=== PATIENT | female | born 1970 | race Caucasian/White ===

== ENCOUNTER 2016-06-20 00:19 | Emergency (ER) | payer OTHER ==
[2016-06-20 00:20] VITALS: BP 140/66; PULSE 76; RESP 16; TEMP 97.8; O2SAT 96
--- NOTE | 2016-06-20 00:37 | PD ---
Physical Exam Date Seen by Provider: Jun 20, 2016 Time Seen by Provider: 00:34 Narrative PT SEEN IN TRIAGE. COUGH,SOB ON ZITHRO,PRED,TESSALON AND ALBUTEROL. SEEN URGENT CARE NOW WORSE SYMPTOM FOR 1 WEEK VITALS STABLE PT WAITING ON BED Data Data Last Documented VS Vital Signs Date Time Temp Pulse Resp B/P Pulse Ox O2 Delivery O2 Flow Rate FiO2 06/20/16 00:20 97.8 76 16 140/66 96 Room Air Orders Complete Blood Count With Diff (06/20/16 00:32) Basic Metabolic Panel (Bmp) (06/20/16 00:32) Chest, Pa & Lat (06/20/16 00:32) Iv Access Insert/Monitor (06/20/16 00:32) Ed Urine Pregnancytest Poc (06/20/16 00:32) Influenzae A/B Antigen (06/20/16 00:32) MDM Medical Record Reviewed: Yes Supervised Visit with ALYX: Yes Vicente Felton Jun 20, 2016 00:37
--- NOTE | 2016-06-20 01:10 | RADRPT ---
EXAM DATE/TIME: 06/20/2016 01:06 [facility] COMPARISON: No previous studies available for comparison. INDICATIONS : Cough. MEDICAL HISTORY : None. SURGICAL HISTORY : None. ENCOUNTER: Initial ACUITY: 1 week PAIN SCORE: 0/10 LOCATION: Bilateral chest FINDINGS: PA and lateral views of the chest demonstrate a normal-sized cardiac silhouette. There is no effusion , consolidation, or pneumothorax. The bones and soft tissues demonstrate no acute abnormality. CONCLUSION: No acute cardiopulmonary abnormality is identified. Germain Beaulieu MD on June 20, 2016 at 1:08 Board Certified Radiologist. This report was verified electronically.
[2016-06-20 01:47] LABS: AUTOMATED NEUTROPHIL # 6.8 TH/MM3 (1.8-7.7); BASOPHIL % 0.3 % (0.0-2.0); EOSINOPHIL # 0.2 TH/MM3 (0-0.4); EOSINOPHIL % 1.4 % (0.0-4.0); HEMATOCRIT 33.9 % (35.0-46.0); HEMO FLAGS DIFF FINAL; LYMPH % 34.5 % (9.0-44.0); LYMPHOCYTE # 4.3 TH/MM3 (1.0-4.8); MEAN CELL VOLUME 89.2 FL (80.0-100.0); MEAN CORPUSCULAR HEMOGLOBIN 31.2 PG (27.0-34.0); MONO % 8.8 % (0.0-8.0); PLATELET COUNT 321 TH/MM3 (150-450); RED CELL DISTRIBUTION WIDTH 12.5 % (11.6-17.2); WHITE BLOOD COUNT 12.3 TH/MM3 (4.0-11.0)
[2016-06-20 01:55] LABS: BICARBONATE 28.6 MEQ/L (21.0-32.0); POTASSIUM 3.3 MEQ/L (3.5-5.1)
[2016-06-20] MEDS ORDERED: POTASSIUM CHLORIDE 20 MEQ CONTROLLED RELEASE TAB PO ONE (06:15)
[2016-06-20] MEDS ORDERED: guaiFENesin/CODEINE SYRUP 200 MG/20 MG/10 ML CUP PO ONE (06:15)
--- NOTE | 2016-06-20 06:15 | PD ---
HPI Chief Complaint: Cold / Flu Symptoms Time Seen by Provider: 05:36 Travel History International Travel<30 days: No Contact w/Intl Traveler<30days: No Traveled to known affect area: No History of Present Illness HPI 45yo F with cough for 1 week. Pt went to walk in clinic and had received a z- geoffrey, albuterol, and prednisone. States she is still coughing. Pt is coughing so much that she feels weak. Had post tussive vomiting. Has midsternal chest pain only when coughing. Denies any fever, n/v, sob, abdominal pain. PFSH Past Medical History Medical History: Denies Significant Hx Diminished Hearing: No Tetanus Vaccination: Unknown ?: Not Past Surgical History Surgical History: No Previous Surgery Social History Alcohol Use: No Tobacco Use: No Substance Use: No Allergies-Medications (Allergen,Severity, Reaction): Coded Allergies: No Known Allergies (Unverified , 06/20/16) Review of Systems Except as stated in HPI: all other systems reviewed are Neg Physical Exam Narrative GENERAL: 45yo F not in distress. SKIN: Focused skin assessment warm/dry. HEAD: Atraumatic. Normocephalic. EYES: Pupils equal and round. No scleral icterus. No injection or drainage. ENT: Throat is clear. NECK: Trachea midline. No JVD. CARDIOVASCULAR: Regular rate and rhythm. No murmur appreciated. RESPIRATORY: No accessory muscle use. Clear to auscultation. Breath sounds equal bilaterally. GASTROINTESTINAL: Abdomen soft, non-tender, nondistended. No rebound tenderness or guarding. MUSCULOSKELETAL: No obvious deformities. No clubbing. No cyanosis. No edema. NEUROLOGICAL: Awake and alert. No obvious cranial nerve deficits. Motor grossly within normal limits. Normal speech. PSYCHIATRIC: Appropriate mood and affect; insight and judgment normal. Data Data Last Documented VS Vital Signs Date Time Temp Pulse Resp B/P Pulse Ox O2 Delivery O2 Flow Rate FiO2 06/20/16 07:14 80 16 135/76 100 06/20/16 00:20 97.8 Room Air Orders Complete Blood Count With Diff (06/20/16 00:32) Basic Metabolic Panel (Bmp) (06/20/16 00:32) Chest, Pa & Lat (06/20/16 00:32) Iv Access Insert/Monitor (06/20/16 00:32) Ed Urine Pregnancytest Poc (06/20/16 00:32) Influenzae A/B Antigen (06/20/16 00:32) Guaifen-Cod 200-20 Mg/10ml Liq (Robituss (06/20/16 06:15) Potassium Chloride (Kcl) (06/20/16 06:15) Labs Laboratory Tests Test 06/20/16 01:17 White Blood Count 12.3 TH/MM3 Red Blood Count 3.80 MIL/MM3 Hemoglobin 11.9 GM/DL Hematocrit 33.9 % Mean Corpuscular Volume 89.2 FL Mean Corpuscular Hemoglobin 31.2 PG Mean Corpuscular Hemoglobin 35.0 % Concent Red Cell Distribution Width 12.5 % Platelet Count 321 TH/MM3 Mean Platelet Volume 7.1 FL Neutrophils (%) (Auto) 55.0 % Lymphocytes (%) (Auto) 34.5 % Monocytes (%) (Auto) 8.8 % Eosinophils (%) (Auto) 1.4 % Basophils (%) (Auto) 0.3 % Neutrophils # (Auto) 6.8 TH/MM3 Lymphocytes # (Auto) 4.3 TH/MM3 Monocytes # (Auto) 1.1 TH/MM3 Eosinophils # (Auto) 0.2 TH/MM3 Basophils # (Auto) 0.0 TH/MM3 CBC Comment DIFF FINAL Differential Comment Sodium Level 139 MEQ/L Potassium Level 3.3 MEQ/L Chloride Level 104 MEQ/L Carbon Dioxide Level 28.6 MEQ/L Anion Gap 6 MEQ/L Blood Urea Nitrogen 11 MG/DL Creatinine 0.71 MG/DL Estimat Glomerular Filtration 88 ML/MIN Rate Random Glucose 95 MG/DL Calcium Level 9.2 MG/DL [facility] Medical Decision Making Medical Screen Exam Complete: Yes Emergency Medical Condition: Yes Differential Diagnosis URI vs. bronchitis vs. pneumonia Narrative Course 45yo well appearing female with cough for 1 week. Labs reviewed, mild leukocytosis. K: 3.3. Pt given 40mEq of KCl. Pt also given robiutissin with codeine. CXR showed no acute cardiopulmonary abnormality. Robitussin given. Pt is well appearing and return precautions given. Diagnosis Primary Impression: URI (upper respiratory infection) Qualified Code: J06.9 - Upper respiratory tract infection, unspecified type Patient Instructions: General Instructions Departure Forms: Tests/Procedures Additional Instructions: Please follow up with your PMD in 3-7 days. Return to the ED if symptoms worsen. Disposition: 01 DISCHARGE HOME Condition: Stable Ivonne Hanley Jun 20, 2016 06:14
[2016-06-20 07:14] VITALS: BP 135/76
== END 2016-06-20 07:15 | disposition home or self-care (01) ==
LOC: NEPC 00:19
DX: J06.9 Acute upper respiratory infection, unspecified (principal)
CPT/HCPCS: 71020; 80048; 84703; 85025; 87804; 99283